=== PATIENT | female | born 1940 | race Caucasian/White ===

== ENCOUNTER → 2017-02-16 | Outpatient (CLI) | payer MEDICARE ==
[~2017-02-16] MED LIST: ARICEPT10 MG PO; CEFDINIR300 MG PO; LISINOPRIL10 MG PO; SYNTHROID50 MCG PO
== END ==
LOC: US 13:00
DX: R55 Syncope and collapse (principal); R41.81 Age-related cognitive decline
CPT/HCPCS: 93880

== ENCOUNTER → 2017-02-17 | Outpatient (CLI) | payer MEDICARE ==
[~2017-02-17] MED LIST changes: -CEFDINIR300 MG PO
== END ==
LOC: HEART 5 02-09 14:00
DX: R55 Syncope and collapse (principal); R41.81 Age-related cognitive decline; I07.1 Rheumatic tricuspid insufficiency; I37.1 Nonrheumatic pulmonary valve insufficiency
CPT/HCPCS: 93306

== ENCOUNTER → 2022-01-23 | Outpatient (CLI) | payer MEDICARE ==
[~2022-01-23] MED LIST changes: +CEFDINIR300 MG PO; +OMNICEF 300 MG300 MG PO
[2022-01-23 12:42] LABS: HEMOGLOBIN 9.5 gm/dl (12.3-15.3); RED BLOOD COUNT 5.27 M/UL (4.00-5.10); WHITE BLOOD COUNT 9.9 K/UL (4.5-11.0)
== END ==
LOC: LAB 12:12
PROVIDERS: Emergency Medicine
DX: I12.9 Hypertensive chronic kidney disease with stage 1 through stage 4 chronic kidney disease, or unspecified chronic kidney disease (principal); N18.30 Chronic kidney disease, stage 3 unspecified; E03.8 Other specified hypothyroidism; E78.2 Mixed hyperlipidemia
CPT/HCPCS: 36415; 80053; 84443; 85025